=== PATIENT | female | born 1990 | race American Indian/Alaskan Native ===

== ENCOUNTER 2020-09-04 00:26 | Outpatient (CLI) | payer MEDICAID ==
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
[~2020-09-04 00:26] MED LIST: ACETAMINOPHEN 500 MG TAB PO ONE
[2020-09-04 01:07] VITALS: BP 110/59
[2020-09-04] MEDS ORDERED: LACTATED RINGERS 1,000 ML IV SCH (02:30)
--- NOTE | 2020-09-04 03:49 | Ultrasound Report ---
LIMITED OBSTETRICAL ULTRASOUND Indication: Assessment of placenta and fluid COMPARISON: None FINDINGS: Large well-developed fetus is seen in this intrauterine . Fetus is in a cephalic p osition. Placenta is fundal and posterior with no obvious abnormalities seen. No evidence of abruptio n is noted. Amniotic fluid volume appears qualitatively within normal limits. ESTHER is within the isaiah l range at 9.4 cm. cardiac activity is documented at 141 bpm. No obvious abnormalities are seen in a limited study. BIOPHYSICAL PROFILE breathing movements: 2/2 movements: 2/2 posture and tone tone: 2/2 Qualitative amniotic fluid volume: 2/2 Total score: 8/8, within normal limits Signer Name: Steven Eduardo MD Signed: 09/04/2020 3:45 AM Workstation Name: [id number]
== END 2020-09-04 04:17 | disposition home or self-care (01) ==
LOC: TRG 00:26 → APU 00:31 → TRG 04:17
PROVIDERS: ATTEND Obstetrics & Gynecology
DX: O26.893 Other specified pregnancy related conditions, third trimester (principal); R10.9 Unspecified abdominal pain; M54.9 Dorsalgia, unspecified; Z87.891 Personal history of nicotine dependence; Z3A.34 34 weeks gestation of pregnancy
CPT/HCPCS: 59025; 76815; 76819; 96360; 96361; J7120